=== PATIENT | female | born 1975 | race Caucasian/White ===

== ENCOUNTER 2022-08-05 13:46 | Emergency (ER) | payer SELFPAY ==
[2022-08-05 13:59] VITALS: BP 118/83; PULSE 87; RESP 18; TEMP 97.7; BMI 24.0
[2022-08-05] MEDS ORDERED: ALBUTEROL SO4 2.5/IPRATROPIUM 0.5 INH SOL 3 ML VIAL.NEB. NEB ONE ×2 (14:45→15:22)
[2022-08-05] MEDS ORDERED: predniSONE 20 MG TABLET (UD) PO ONE (14:46)
[2022-08-05] MEDS ORDERED: predniSONE 20 MG TABLET (UD) ONE (15:22)
== END 2022-08-05 18:13 | disposition home or self-care (01) ==
LOC: JER 13:46
PROC: 3E0F7GC Introduction of Other Therapeutic Substance into Respiratory Tract, Via Natural or Artificial Opening (ICD-10-PCS; principal; 2022-08-05)
DX: J20.9 Acute bronchitis, unspecified (principal)
CPT/HCPCS: 0241U-QW; 71046-TC-FY; 99284-25